=== PATIENT | female | born 1990 | race American Indian/Alaskan Native ===

== ENCOUNTER 2021-08-09 15:38 | Emergency (ER) | payer SELFPAY ==
[2021-08-09 16:07] VITALS: BP 106/52
[2021-08-09] MEDS ORDERED: SODIUM CHLORIDE 0.9% 1000 ML 1,000 ML IV ONE (16:27)
[2021-08-09] MEDS ORDERED: ONDANSETRON 4 MG/2 ML INJ IV ONE (16:27)
[2021-08-09] MEDS ORDERED: MORPHINE 4 MG/1 ML INJ IV ONE (16:27)
--- NOTE | 2021-08-09 16:27 | Emergency Department Report ---
HPI - General Chief Complaint: Abdominal Pain - HPI HPI: 31-year-old -Arm[place]ian female presents to the emergency department with complaint of a 4-day history of lower abdominal and pelvic pain "at the site of my previous scars." The patient denies dysuria but says that she has pain in this area when she urinates and also has complaints of constipation. Patient has a history of anemia and has been taking iron pills which she thinks is adding to the constipation. She denies any fever, vaginal bleeding or discharge, diarrhea, back pain, chest pain or shortness of breath. She has not taken anything for symptoms prior to presentation. She has had 3 previous C- sections and says "I was told if I ever got again it could lead to problems and I just want to get checked out." She says that her pain is currently a 7 out of 10 in intensity. No known alleviating factors. No recent travel or sick contacts at home. ED Past Medical Hx - Past Medical History Previous Medical History?: Yes - Surgical History Past Surgical History?: Yes Additional Surgical History: x 3, colposcopy - Medications Home Medications: Home Medications Medication Instructions Recorded Confirmed Last Taken Type DOXYCYCLINE Hyclate [Vibramycin] 100 mg PO Q12HR #20 capsule 08/09/21 Unknown Rx HYDROcodone/APAP 5-325 [Storden 1 each PO Q6HR PRN #12 tablet 08/09/21 Unknown Rx 5/325] ED Review of Systems ROS: Stated complaint: ABDOMINAL PAIN Other details as noted in HPI Comment: All other systems reviewed and negative Constitutional: denies: chills, fever Eyes: denies: eye pain, vision change ENT: denies: ear pain, throat pain Respiratory: denies: cough, shortness of breath Cardiovascular: denies: chest pain, palpitations Gastrointestinal: abdominal pain, constipation. denies: nausea, vomiting, diarrhea Genitourinary: denies: hematuria, discharge Musculoskeletal: denies: back pain, arthralgia Skin: denies: rash, lesions Neurological: denies: headache, weakness Physical Exam - Physical Exam Vital Signs: Vital Signs 08/09/21 16:05 Temperature 97.9 F Pulse Rate 91 H Respiratory 20 Rate Blood Pressure 106/52 [Right] O2 Sat by Pulse 100 Oximetry Physical Exam: GENERAL: The patient is well-developed well-nourished. HENT: Normocephalic. Atraumatic. Patient has moist mucous membranes. EYES: Extraocular motions are intact. NECK: Supple. Trachea is midline. CHEST/LUNGS: Clear to auscultation. There is no respiratory distress noted. HEART/CARDIOVASCULAR: Regular. There is no tachycardia. There is no murmur. ABDOMEN: Abdomen is soft. Lower abdominal tenderness to palpation. No guarding. Patient has normal bowel sounds. There is no abdominal distention. SKIN: Skin is warm and dry. NEURO: The patient is awake, alert, and oriented. The patient is cooperative. The patient has no focal neurologic deficits. Normal speech. MUSCULOSKELETAL: There is no tenderness or deformity. There is no limitation range of motion. ED Course Vital Signs 08/09/21 16:05 Temperature 97.9 F Pulse Rate 91 H Respiratory 20 Rate Blood Pressure 106/52 [Right] O2 Sat by Pulse 100 Oximetry ED Medical Decision Making - Lab Data Result diagrams: 08/09/21 16:19 08/09/21 16:19 Lab Results 08/09/21 08/09/21 08/09/21 Range/Units 16:19 16:19 16:19 WBC 5.8 (4.5-11.0) K/mm3 RBC 4.05 (3.65-5.03) M/mm3 Hgb 11.9 (10.1-14.3) gm/dl Hct 36.6 (30.3-42.9) % MCV 90 (79-97) fl MCH 29 (28-32) pg MCHC 32 (30-34) % RDW 14.1 (13.2-15.2) % Plt Count 236 (140-440) K/mm3 Lymph % (Auto) 25.8 (13.4-35.0) % [place] % (Auto) 12.4 H (0.0-7.3) % Eos % (Auto) 0.9 (0.0-4.3) % Baso % (Auto) 0.5 (0.0-1.8) % Lymph # (Auto) 1.5 (1.2-5.4) K/mm3 [place] # (Auto) 0.7 (0.0-0.8) K/mm3 Eos # (Auto) 0.1 (0.0-0.4) K/mm3 Baso # (Auto) 0.0 (0.0-0.1) K/mm3 Seg Neutrophils % 60.4 (40.0-70.0) % Seg Neutrophils # 3.5 (1.8-7.7) K/mm3 Sodium 143 (137-145) mmol/L Potassium 3.5 L (3.6-5.0) mmol/L Chloride 104.0 (98-107) mmol/L Carbon Dioxide 25 (22-30) mmol/L Anion Gap 18 mmol/L BUN 8 (7-17) mg/dL Creatinine 0.7 (0.6-1.2) mg/dL Estimated GFR > 60 ml/min BUN/Creatinine Ratio 11 % Glucose 69 (65-100) mg/dL Calcium 8.7 (8.4-10.2) mg/dL Total Bilirubin 0.30 (0.1-1.2) mg/dL Direct Bilirubin < 0.2 (0-0.2) mg/dL Indirect Bilirubin 0.1 mg/dL AST 13 (5-40) units/L ALT 11 (7-56) units/L Alkaline Phosphatase 59 (35-129) units/L Total Protein 7.6 (6.3-8.2) g/dL Albumin 3.8 L (3.9-5) g/dL Albumin/Globulin Ratio 1.0 % Lipase 53 (13-60) units/L HCG, Qual Negative (Negative) - Radiology Data Radiology results: report reviewed CT ABDOMEN AND PELVIS WITH IV CONTRAST, 08/09/2021 INDICATION: Lower abdominal pain, pelvic pain and constipation. TECHNIQUE: Following the administration of intravenous contrast, multiple axial CT images of the abdomen and pelvis were acquired. Sagittal and coronal reformats were obtained. All CT performed at this facility utilize dose reduction techniques including automated exposure control, iterative reconstruction and weight based dosing when appropriate to reduce patient radiation dose to as low as reasonably achievable. COMPARISON: None FINDINGS: Lung bases: Limited imaging of the bilateral lung bases demonstrates no focal abnormality. ABDOMEN: LIVER/GALL BLADDER/BILE DUCTS: No significant abnormality. PANCREAS: No significant abnormality. SPLEEN: No significant abnormality. ADRENALS: No significant abnormality. RIGHT KIDNEY / URETER: No significant abnormality. LEFT KIDNEY / URETER: No significant abnormality. AORTA: The abdominal aorta is normal in caliber. STOMACH AND SMALL BOWEL: No significant abnormality. APPENDIX: The appendix is visualized and appears normal. PELVIS: The uterus is enlarged, diffusely heterogeneous and contains multiple mixed density masses. The uterus measures approximately 12.4 x 6.6 cm. There is possible mild inflammatory change involving the lower uterine segment and cervix. There is a small amount of free pelvic fluid. There is also mild sigmoid diverticulosis without definitive CT evidence for diverticulitis. The urinary bladder appears grossly normal. BONES AND SOFT TISSUES: No significant abnormality. IMPRESSION: 1. Suspected mild inflammatory change within the pelvis that appear centered around the lower uterine segment and cervix. This is a nonspecific finding but may represent an infectious or inflammatory process. PID would be a consideration. 2. Sigmoid diverticulosis without definitive CT evidence for diverticulitis. However, given the suspected inflammatory changes in the pelvis, mild or subtle diverticulitis could have this appearance. 3. Enlarged heterogeneous uterus most likely related to multiple uterine fibroids. - Medical Decision Making This patient presents with a 4-day history of lower abdominal and pelvic pain. On examination there is some reproducible lower abdominal tenderness to palpation. The abdomen is soft, nondistended and nontoxic in appearance. Labs have been mostly unremarkable including CBC, metabolic panel, lipase and the patient is not . CT scan of the abdomen and pelvis with IV contrast shows some inflammation to the lower uterine segment and cervix, diverticulosis without evidence of diverticulitis, and uterine fibroids. Radiology states that the inflammation of the lower uterine segment and cervix could possibly indicate pelvic inflammatory disease, and that the diverticulosis along with mid pelvic inflammation could be mild early diverticulitis. The patient does not have any vaginal discharge. Vital signs reassuring including being afebrile. The patient will be treated with doxycycline for the possible PID and this would also cover her for diverticulitis or if there is a urinary tract infection, as we have not yet obtained a urinalysis. She appears safe for discharge home and has been instructed to follow-up with primary care and [facility]. She will return to the emergency department with any worsening of her symptoms or with any acute distress. Critical Care Time: No Critical care attestation.: If time is entered above; I have spent that time in minutes in the direct care of this critically ill patient, excluding procedure time. ED Disposition Clinical Impression: Uterine inflammation, Fibroids, Diverticulosis Disposition: 01 HOME / SELF CARE / HOMELESS Is pt being admited?: No Condition: Stable Instructions: Abdominal Pain (ED) Additional Instructions: Please follow-up with a primary care physician in the next few days. I have given you a referral for a local primary care physician, Dr. Castaneda, and a primary care clinic, [facility]. I have given you a referral for a local [facility], [facility], to follow-up regarding the CT findings of uterine and cervical inflammation. Take all medications as prescribed. You have been prescribed a medication that is sedating and therefore should not be taken prior to driving, working, and responsible for children and in no way should be mixed with alcohol of any quantity. Return to the emergency department with any worsening of your symptoms, new or concerning symptoms not addressed during this current emergency department visit, or with any acute distress. Prescriptions: HYDROcodone/APAP 5-325 [Storden 5/325] 1 each PO Q6HR PRN #12 tablet PRN Reason: Pain DOXYCYCLINE Hyclate [Vibramycin] 100 mg PO Q12HR #20 capsule Referrals: PRIMARY CAREMD [Primary Care Provider] - 3-5 Days GERMAINE CASTANEDA MD [Staff Physician] - 3-5 Days [facility] [Provider Group] - 3-5 Days [facility] [Provider Group] - 3-5 Days Time of Disposition: 19:03
[2021-08-09 16:39] LABS: Basophils % (Auto) 0.5 % (0.0-1.8); Eosinophils # (Auto) 0.1 K/mm3 (0.0-0.4); Eosinophils % (Auto) 0.9 % (0.0-4.3); Hematocrit 36.6 % (30.3-42.9); Hemoglobin 11.9 gm/dl (10.1-14.3); Lymphocytes # (Auto) 1.5 K/mm3 (1.2-5.4); Lymphocytes % (Auto) 25.8 % (13.4-35.0); Mean Corpuscular HGB Conc 32 % (30-34); Mean Corpuscular Volume 90 fl (79-97); Monocytes # (Auto) 0.7 K/mm3 (0.0-0.8); Monocytes % (Auto) 12.4 % (0.0-7.3); Platelet Count 236 K/mm3 (140-440); Red Blood Count 4.05 M/mm3 (3.65-5.03); Red Cell Distribution Width 14.1 % (13.2-15.2)
[2021-08-09 17:05] LABS: Alanine Aminotransferase 11 units/L (7-56); Albumin 3.8 g/dL (3.9-5); Blood Urea Nitrogen 8 mg/dL (7-17); Calcium 8.7 mg/dL (8.4-10.2); Hemolysis Index 3
[2021-08-09 17:31] LABS: BUN/Creatinine Ratio 11; Bilirubin,Direct < 0.2 mg/dL (0-0.2)
[2021-08-09] MEDS ORDERED: DEXTROSE 50% IN WATER (25GM) 50 ML SYRINGE IV ONE (17:34)
--- NOTE | 2021-08-09 18:55 | Cat Scan Report ---
CT ABDOMEN AND PELVIS WITH IV CONTRAST, 08/09/2021 INDICATION: Lower abdominal pain, pelvic pain and constipation. TECHNIQUE: Following the administration of intravenous contrast, multiple axial CT images of the abdo men and pelvis were acquired. Sagittal and coronal reformats were obtained. All CT performed at this facility utilize dose reduction techniques including automated exposure control, iterative reconstru ction and weight based dosing when appropriate to reduce patient radiation dose to as low as reasonab ly achievable. COMPARISON: None FINDINGS: Lung bases: Limited imaging of the bilateral lung bases demonstrates no focal abnormality. ABDOMEN: LIVER/GALL BLADDER/BILE DUCTS: No significant abnormality. PANCREAS: No significant abnormality. SPLEEN: No significant abnormality. ADRENALS: No significant abnormality. RIGHT KIDNEY / URETER: No significant abnormality. LEFT KIDNEY / URETER: No significant abnormality. AORTA: The abdominal aorta is normal in caliber. STOMACH AND SMALL BOWEL: No significant abnormality. APPENDIX: The appendix is visualized and appears normal. PELVIS: The uterus is enlarged, diffusely heterogeneous and contains multiple mixed density masses. T he uterus measures approximately 12.4 x 6.6 cm. There is possible mild inflammatory change involving the lower uterine segment and cervix. There is a small amount of free pelvic fluid. There is also mil d sigmoid diverticulosis without definitive CT evidence for diverticulitis. The urinary bladder appea rs grossly normal. BONES AND SOFT TISSUES: No significant abnormality. IMPRESSION: 1. Suspected mild inflammatory change within the pelvis that appear centered around the lower uterine segment and cervix. This is a nonspecific finding but may represent an infectious or inflammatory pr ocess. PID would be a consideration. 2. Sigmoid diverticulosis without definitive CT evidence for diverticulitis. However, given the suspe cted inflammatory changes in the pelvis, mild or subtle diverticulitis could have this appearance. 3. Enlarged heterogeneous uterus most likely related to multiple uterine fibroids. Signer Name: Jessa Patiño MD Signed: 08/09/2021 6:51 PM Workstation Name: [id number]
== END 2021-08-09 19:00 | disposition home or self-care (01) ==
LOC: ED 15:38
DX: N71.9 Inflammatory disease of uterus, unspecified (principal); K57.90 Diverticulosis of intestine, part unspecified, without perforation or abscess without bleeding; D21.9 Benign neoplasm of connective and other soft tissue, unspecified; Z98.890 Other specified postprocedural states
CPT/HCPCS: 36415; 74177; 80048; 80076; 83690; 84703; 85025; 96361; 96374; 96375; 99284; J2270; J2405; J3490; J7030; Q9967; Q0162